=== PATIENT | female | born 1950 | race Caucasian/White ===

== ENCOUNTER → 2016-09-11 | Day surgery (SDC) | payer MEDICARE, OTHER ==
[~2016-09-11] MED LIST: Albuterol 0.083% 2.5 MG/3 ML Neb Soln NEB ONE; Ampicillin/Sulbactam Na 3 GM Vial ONE; Bupivacaine 0.25% 30 ML SDV ONE; Dexamethasone 4 MG/ML 5 ML MDV ONE; EPINEPHrine 1:1000 1 MG/ML 30 ML MDV ONE; EPINEPHrine 1:1000 1 MG/ML SDV ONE; HYDROmorphone 0.5 MG/0.5 ML Syringe IVPUSH PRN; HYDROmorphone 1 MG/ML Syringe ONE; Lactated Ringers 1,000 ML ONE; Lidocaine 1% 2 ML ONE; Lidocaine 1% 6 ML ONE; Lidocaine 1%/Sod Bicarbonate in NS 8.4% 1 ML Syringe IV PRN; Midazolam 1 MG/ML 2 ML SDV ONE; Ondansetron 4 MG/2 ML SDV IVPUSH PRN; Ondansetron 4 MG/2 ML SDV ONE; Phenylephrine/Normal Saline 100 MCG/ML 10 ML Syringe ONE; Propofol 200 MG/20 ML SDV ONE; Rocuronium 50 MG/5 ML Vial ONE; Ropivacaine 0.5% 5 MG/ML 30 ML SDV ONE; Sodium Chloride 0.9% 10 ML Syringe FLUSH PRN; ceFAZolin 1 GM Vial ONE; fentaNYL 100 MCG/2 ML SDV IVPUSH PRN; fentaNYL 250 MCG/5 ML SDV ONE
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
[2016-09-11] MEDS: Lactated Ringers 1,000 ML IV SCH ×2 (09:30→11:20)
--- NOTE | 2016-09-11 13:47 | PCM.POSTAN ---
POST ANESTHESIA ASSESSMENT - MENTAL STATUS Mental Status: alert - VITAL SIGNS Pulse Rate: 91 SaO2: 93 Resp Rate: 19 Blood Pressure: 147/58 Temperature: 36.6 C - RESPIRATORY Respiratory Status: respiratory rate WNL, airway patent, O2 saturation stable, supplemental oxygen - CARDIOVASCULAR CV Status: pulse rate WNL, blood pressure stable - GASTROINTESTINAL GI Status: no symptoms - POST OP HYDRATION Hydration Status: adequate & stable
--- NOTE | 2016-09-11 16:03 | PCM48HPAN ---
Post Anesthesia Note - EVALUATION WITHIN 48HRS OF ANESTHETIC Vital Signs in Normal Range: Yes Patient Participated in Evaluation: Yes Respiratory Function Stable: Yes Airway Patent: Yes Cardiovascular Function Stable: Yes Hydration Status Stable: Yes Pain Control Satisfactory: Yes Nausea and Vomiting Control Satisfactory: Yes Mental Status Recovered: Yes - COMMENTS/OBSERVATIONS Free Text/Narrative:: Nurse Lesa Souza RN, informed anesthesia of patient's sat's maintaining at 1LPM at 91-92%. Albuterol premix ordered times one, and incentive spirometry ordered for patient to do at home. Anesthesia will continue to monitor along with nursing, prior to discharge.
--- NOTE | 2016-09-11 17:06 | PCM.SN ---
- Free Text/Narrative Note: 1700 pt up to restroom and back to bed sats in high 70% range. Ask for floor recovery will continue to monitor while encouraging cough and deep breathing. sats back to low 905 range with 1 liter O2
[2016-09-11 21:32] VITALS: BP 117/68
--- NOTE | 2016-09-14 22:27 | PCM.OPNOTE ---
- General Post-Op/Procedure Note Date of Surgery/Procedure: 09/11/16 Operative Procedure(s): right shoulder video arthroscopy with massive rotator cuff repair Pre Op Diagnosis: right shoulder rotator cuff repair Post-Op Diagnosis: Same Anesthesia Technique: General ET tube, Regional block Primary Surgeon: Marco Ballard Anesthesia Provider: Rose Bean Machine Wiper: Kristel Skinner in mLs: 5 Complications: None Condition: Good
--- NOTE | 2016-09-14 23:19 | OR ---
DATE OF OPERATION: 09/11/2016 SURGEON: Marco Ballard MD OPERATIVE PROCEDURE: Right shoulder video arthroscopy with massive rotator cuff repair. PREOPERATIVE DIAGNOSIS: Right shoulder rotator cuff tear. POSTOPERATIVE DIAGNOSIS: Right shoulder rotator cuff tear. ANESTHESIA TECHNIQUE: General endotracheal intubation with supraclavicular block. ANESTHESIA PROVIDER: Rose Bean CRNA. RUBBER ATTACHER: Kristel Skinner PA-C ESTIMATED BLOOD LOSS: Less than 5 mL. COMPLICATIONS: None. CONDITION: Stable. DESCRIPTION OF PROCEDURE: The patient was identified in the preop holding area. Proper site was marked and identified by the surgeon. The patient was taken back to the operating theater, where after adequate anesthesia, the patient was placed in a lazy lateral decubitus position and the right shoulder was sterilely prepped and draped in the usual sterile fashion. OR time-out was performed. The patient received 2 g IV Ancef and 12 pounds of traction was applied to the right upper extremity. Standard posterior portal incision was made. The scope trocar was introduced to the glenohumeral joint. There was noted to be a massive rotator cuff tear of both the supra and infraspinatus at this time. Subscapularis tendon was intact. Biceps tendon was also intact. A spinal needle was used for creation of an anterior portal. Attention was turned to the subacromial space. At this time, a limited bursectomy was carried out and the tendon was freed both over the top of the glenoid and superiorly in the subacromial space. The patient had a flat appearing acromion therefore no need for subacromial decompression. At this time, a good resector as well as a mirian was used for creation of a good bony bleeding footprint as well as medialization of the footprint secondary to the significant tear and loss of excursion. At this time, two 5.5 mm Arthrex anchors were placed medially as the patient had significantly soft bone. The 2 limbs of FiberWire and 2 limbs of FiberTape were then passed in both the anterior and posterior anchors. The 2 limbs of the FiberWire were then tied first anteriorly and then the 2 limbs posteriorly were tied to create a medial row repair. These were then cut. The 2 limbs of the anterior FiberWire were then taken out anteriorly and a 5.5 mm lateral row was done anteriorly. This was again tried posteriorly, but the patient had significantly soft bone and all the anchors pulled out including the 5.5 mm anchor. At this time, it was decided we would just tie this for another medial repair, so the fiber tapes were then tied medially on the posterior portion. Excess saline was then irrigated through the wound. Sterile nylon simple suture was used for closure of the portal incisions and the patient was placed in a sterile soft dressing and a pillow sling. The patient tolerated the procedure well and sent to PACU in stable condition. OPERATION PERFORMED: ANESTHESIA: [facility] /[id number]
== END | disposition home or self-care (01) ==
LOC: JD.SDS 08:39
PROVIDERS: ATTEND Orthopaedic Surgery
PROC: 0LQ14ZZ Repair Right Shoulder Tendon, Percutaneous Endoscopic Approach (ICD-10-PCS; principal; 2016-09-11)
DX: S46.011A Strain of muscle(s) and tendon(s) of the rotator cuff of right shoulder, initial encounter (principal); Y93.55 Activity, bike riding; J30.9 Allergic rhinitis, unspecified; M19.90 Unspecified osteoarthritis, unspecified site; I44.7 Left bundle-branch block, unspecified; E66.9 Obesity, unspecified; Z88.2 Allergy status to sulfonamides; Z91.048 Other nonmedicinal substance allergy status; Z87.891 Personal history of nicotine dependence
CPT/HCPCS: 29827; 87641; 94640; 94664; C1713; J0171; J0295; J0690; J1100; J1170; J2250; J2405; J2795; J3010; J7120; 01630; 64415-59; J2704; J3490

== ENCOUNTER 2017-11-02 06:55 | Day surgery (SDC) | payer MEDICARE, OTHER ==
[2017-11-02] MEDS ORDERED: Lidocaine 1%/Sod Bicarbonate in NS 8.4% 1 ML Syringe IDERM PRN (07:17)
[2017-11-02] MEDS ORDERED: Sodium Chloride 0.9% 10 ML Syringe FLUSH PRN (07:17)
[2017-11-02] MEDS ORDERED: Lactated Ringers 1,000 ML IV SCH (07:30)
--- NOTE | 2017-11-02 07:44 | PCM.PREANE ---
Preanesthetic Assessment - Anesthesia/Transfusion/Family Hx Anesthesia History: Prior Anesthesia Without Reaction Family History of Anesthesia Reaction: No - Review of Systems General: No Symptoms Pulmonary: No Symptoms Cardiovascular: No Symptoms, Other (LBBB ) Gastrointestinal: Nausea Neurological: No Symptoms, Other (Hearing ) Other: Reports: None - Physical Assessment NPO Status Date: 11/01/17 NPO Status Time: 23:30 O2 Sat by Pulse Oximetry: 95 Respiratory Rate: 16 Vital Signs: Last Vital Signs Temp 36.2 C 11/02/17 07:00 Pulse 55 L 11/02/17 07:00 Resp 16 11/02/17 07:00 BP 142/54 H 11/02/17 07:00 Pulse Ox 95 11/02/17 07:00 Height: 1.57 m Weight: 94.801 kg ASA Class: 2 Mental Status: Alert & Oriented x3 Airway Class: Mallampati = 1 Dentition: Reports: Normal Dentition Thyro-Mental Finger Breadths: 3 Mouth Opening Finger Breadths: 3 ROM/Head Extension: Full Lungs: Clear to Auscultation, Normal Respiratory Effort Cardiovascular: Regular Rate, Regular Rhythm - Allergies Allergies/Adverse Reactions: Allergies Allergy/AdvReac Type Severity Reaction Status Date / Time Sulfa (Sulfonamide Allergy Hives Verified 10/30/17 13:48 Antibiotics) tape Allergy Rash Uncoded 10/30/17 13:48 - Acknowledgements Anesthesia Type Planned: MAC Pt an Appropriate Candidate for the Planned Anesthesia: Yes Alternatives and Risks of Anesthesia Discussed w Pt/Guardian: Yes Pt/Guardian Understands and Agrees with Anesthesia Plan: Yes PreAnesthesia Questionnaire - Past Health History Medical/Surgical History: Denies Medical/Surgical History HEENT History: Reports: Allergic Rhinitis, Impaired Vision, Other (See Below) Other HEENT History: has glasses, dental plate, hearing aid Cardiovascular History: Reports: Other (See Below) Other Cardiovascular History: bradycardia, chest pain, plapiations, Bundle branch block Respiratory History: Reports: None Gastrointestinal History: Reports: Colon Polyp, Helicobacter Pylori Genitourinary History: Reports: None 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 Musculoskeletal History: Reports: Arthritis Other Musculoskeletal History: R rotator cuff injury Neurological History: Reports: None Psychiatric History: Reports: None Endocrine/Metabolic History: Reports: Obesity/BMI 30+ Hematologic History: Reports: None Immunologic History: Reports: None Oncologic (Cancer) History: Reports: None Dermatologic History: Reports: None - Past Surgical History Head Surgeries/Procedures: Reports: None HEENT Surgical History: Reports: None Cardiovascular Surgical History: Reports: None Respiratory Surgical History: Reports: None GI Surgical History: Reports: Appendectomy, Cholecystectomy, Colonoscopy, EGD Female Surgical History: Reports: Section, Tubal Ligation Endocrine Surgical History: Reports: None Neurological Surgical History: Reports: None Musculoskeletal Surgical History: Reports: Shoulder Surgery Oncologic Surgical History: Reports: None Dermatological Surgical History: Reports: None - SUBSTANCE USE Smoking Status *Q: Never Smoker Recreational Drug Use History: No - HOME MEDS Home Medications: Home Meds . [No Known Home Meds] 10/30/17 [History] - CURRENT (IN HOUSE) MEDS Current Meds: Current Medications Lactated Ringer's (Ringers, Lactated) 1,000 mls @ 125 mls/hr IV ASDIRECTED NADIA Stop: 11/02/17 23:00 Lidocaine/Sodium Bicarbonate (Buffered Lidocaine 1% In Ns 8.4%) 0.25 ml IDERM ONETIME PRN PRN Reason: Prior to IV Start Stop: 11/02/17 16:00 Sodium Chloride (Saline Flush) 10 ml FLUSH ASDIRECTED PRN PRN Reason: Keep Vein Open Stop: 11/02/17 16:00
--- NOTE | 2017-11-02 08:52 | PCM.OPNOTE ---
- General Post-Op/Procedure Note Date of Surgery/Procedure: 11/02/17 Operative Procedure(s): egd with bx /colonoscopy to cecum Pre Op Diagnosis: nausea/screening colonoscopy Post-Op Diagnosis: Same Anesthesia Technique: MAC Primary Surgeon: Carlos Manuel Whitaker EBL in mLs: 0 Complications: None Condition: Good
[2017-11-02 08:56] VITALS: BP 104/49
--- NOTE | 2017-11-02 08:57 | PCM48HPAN ---
Post Anesthesia Note - EVALUATION WITHIN 48HRS OF ANESTHETIC Vital Signs in Normal Range: Yes Patient Participated in Evaluation: Yes Respiratory Function Stable: Yes Airway Patent: Yes Cardiovascular Function Stable: Yes Hydration Status Stable: Yes Pain Control Satisfactory: Yes Nausea and Vomiting Control Satisfactory: Yes Mental Status Recovered: Yes Pulse Rate: 69 SaO2: 93 Resp Rate: 16 Temperature: 36.3 C Blood Pressure: 104/49
--- NOTE | 2017-11-02 13:35 | OR ---
DATE OF OPERATION: 11/02/2017 SURGEON: Carlos Manuel Whitaker MD PREOPERATIVE DIAGNOSIS: Nausea. POSTOPERATIVE DIAGNOSIS: Nausea. OPERATION PERFORMED: Esophagogastroduodenoscopy with biopsy done under IV sedation. FINDINGS: Sliding hiatal hernia with GE junction located at 35 cm with erosions around the esophagus, of which biopsies were taken. The second portion of the duodenum, duodenal bulb, pyloric channel, antrum, body, cardia, stomach, fundus, and balance of the esophagus was free of any acute disease, findings are consistent with erosive esophagitis. DESCRIPTION OF PROCEDURE: The patient was taken to the endoscopy room, placed in a supine position, I connected monitoring equipment, given IV sedation, placed in left lateral position. Bite-block was inserted. Video Olympus gastroscope was placed in a posterior oropharynx, under direct vision threaded past the cricopharyngeus down the esophagus into the stomach. The stomach was insufflated, and the scope was passed through the pylorus, second portion of the duodenum, and was slowly withdrawn showing normal second portion of the duodenal, duodenal bulb, and pyloric channel. Antrum, body, and cardia of the stomach were viewed. J- maneuver was performed, did not show any acute pathology. Biopsies of the antrum were performed. There was a hiatal hernia noted. Some incompetence of the hiatus. The scope was withdrawn to the GE junction, located at 35 cm. Some exudate was noted at the GE junction. This was biopsied. This is consistent with erosive esophagitis. Rest of the esophagus was viewed. The scope was withdrawn, unremarkable. The patient tolerated the procedure well. IV sedation continued for colonoscopy and specimen was sent to pathology in a labeled container. ANESTHESIA: ESTIMATED BLOOD LOSS: MMODAL /[id number]
--- NOTE | 2017-11-02 13:35 | OR ---
DATE OF OPERATION: 11/02/2017 SURGEON: Carlos Manuel Whitaker MD PREOPERATIVE DIAGNOSIS: Screening colonoscopy. POSTOPERATIVE DIAGNOSIS: Screening colonoscopy. OPERATION PERFORMED: Colonoscopy to cecum done under IV sedation. FINDINGS: Pandiverticulosis, most prominent in the ascending colon and the sigmoid colon. There were no angiodysplasias, neoplasias, large tumor masses, ulcerations, or hemorrhoids. DESCRIPTION OF PROCEDURE: The patient was taken to the treatment room, having been connected to monitoring equipment, given IV sedation for upper GI endoscopy. This was continued for colonoscopy. The patient was placed in left lateral position. Perianal area was inspected and was normal. Rectal exam showed good sphincter tone. A video Olympus colonoscope was then introduced into the rectum and threaded up without problem to the cecum, where the appendicular orifice was noted. Prep was excellent throughout the colon. [place] Cleansing Score grade A, and the scope was slowly withdrawn showing the cecum, ascending colon, transverse colon, descending colon, sigmoid colon, and rectum. Retroflexed view was done. The above noted was found. The patient tolerated the procedure, sent to recovery room in a stable condition. RECOMMENDATION: Repeat colonoscopy in 10 years. ANESTHESIA: ESTIMATED BLOOD LOSS: MMODAL /[id number]
== END 2017-11-02 09:43 | disposition home or self-care (01) ==
LOC: JD.SDS 06:55
PROVIDERS: ATTEND Surgery
DX: Z12.11 Encounter for screening for malignant neoplasm of colon (principal); K57.30 Diverticulosis of large intestine without perforation or abscess without bleeding; K20.9 Esophagitis, unspecified; K44.9 Diaphragmatic hernia without obstruction or gangrene; I44.7 Left bundle-branch block, unspecified; E66.9 Obesity, unspecified; Z68.41 Body mass index [BMI] 40.0-44.9, adult; Z88.2 Allergy status to sulfonamides; Z91.048 Other nonmedicinal substance allergy status; Z90.49 Acquired absence of other specified parts of digestive tract; Z98.890 Other specified postprocedural states; Z87.891 Personal history of nicotine dependence; Z86.010 Personal history of colon polyps
CPT/HCPCS: 43239; 88305; G0121; J7120; 00813